=== PATIENT | male | born 1960 | race Caucasian/White ===

== ENCOUNTER 2024-04-05 15:24 | Emergency (ER) | payer BC ==
[2024-04-05 17:18] LABS: #Basophils 0.04 10x3/uL (0.0-0.2); #Eosinphils Less than 0.03 10x3/uL (0.0-0.7); %Basophils 0.2 % (0.0-1.0); %Lymphocytes 10.2 % (21.0-51.0); %Monocytes 11.2 % (0.0-10.0); %Neutrophils 77.8 % (42.0-75.0); Hematocrit 51.6 % (42.0-52.0); Hemoglobin 17.5 g/dL (14.0-18.0); Mean Corpuscular HGB CONC 33.9 g/dL (32.0-36.0); Mean Corpuscular Hemoglobin 31.7 pg (27.0-31.0); Mean Corpuscular Volume 93.5 fL (78.0-98.0); Mean Platelet Volume 9.7 fL (7.4-10.4); Platelet Count 296 10x3/uL (130-400); RBC Distribution Width 13.8 % (11.5-14.5); Red Blood Cell (RBC) Count 5.52 mill/uL (4.70-6.10)
[2024-04-05 17:31] LABS: ALT (SGPT) 55 U/L (8-55); AST (SGOT) 35 U/L (5-34); Albumin 4.4 g/dL (3.4-4.8); Alkaline Phosphatase 50 U/L (40-110); Anion Gap 14 mmol/L (10-20); BUN (Urea Nitrogen) 17 mg/dL (8.4-25.7); Bilirubin, Total 0.6 mg/dL (0.2-1.2); Calc. Creatinine Clearance 0 mL/min (70-130); Calcium 10.4 mg/dL (7.8-10.44); Carbon Dioxide 24 mmol/L (23-31); Chloride 107 mmol/L (98-107); Estimated GFR 51; Globulin 3.4 g/dL (2.4-3.5); Glucose 110 mg/dL (80-115); Lipase 42 U/L (8-78); Potassium 4.4 mmol/L (3.5-5.1); Protein, Total 7.8 g/dL (5.8-8.1); Sodium 141 mmol/L (136-145)
[2024-04-05] MEDS ORDERED: Ondansetron PF 4 MG/2 ML Vial ONE (17:45)
[2024-04-05] MEDS ORDERED: Morphine 4 MG/ML VIAL ONE (17:45)
[2024-04-05 18:41] LABS: Troponin I 0.026 ng/mL (< 0.028)
[2024-04-05] MEDS ORDERED: fentaNYL 50 mcg/mL 1 mL Vial ONE (18:59)
[2024-04-05] MEDS ORDERED: Ketorolac Tromethamine 30 MG (1 mL) VIAL ONE (19:22)
[2024-04-05] MEDS ORDERED: cefTRIAXone (ROCEPHIN) 2 GM VIAL ONE (19:24)
[2024-04-05] MEDS ORDERED: Sodium Chloride 0.9% 100 ML ONE (19:25)
[2024-04-05 19:29] LABS: Bacteria/HPF None Seen HPF (None Seen); Bilirubin Negative (Negative); Blood, Urine 3+ (Negative); CAUTI Indications for Culture Pelvic or flank pain; Clarity Clear (Clear); Glucose, Urine (Dipstick) Normal (Negative); Ketone, Urine Negative (Negative); Leukocyte Negative Leu/uL (Negative); Nitrite Negative (Negative); Protein, Urine (Dipstick) Negative (Neg-Trace); RBC/HPF Greater than 50 HPF (0-3); Specific Gravity, Urine 1.029 (1.002-1.036); Squamous Epithelial 0-3 HPF (0-3); Urobilinogen Normal mg/dL (Less than 2); WBC/HPF 0-3 HPF (0-3); pH, Urine 5.5 (5.0-9.0)
[2024-04-05 19:33] LABS: Urine Culture Reflex No No
[2024-04-05 21:03] LABS: Lactic Acid 1.9 mmol/L (0.5-2.2)
== END 2024-04-05 20:45 | disposition home or self-care (01) ==
LOC: ERS 15:24
DX: N13.2 Hydronephrosis with renal and ureteral calculous obstruction (principal); I10 Essential (primary) hypertension; F17.220 Nicotine dependence, chewing tobacco, uncomplicated; Z79.899 Other long term (current) drug therapy; Z79.82 Long term (current) use of aspirin
CPT/HCPCS: 36415; 36416; 74177; 80053; 81001; 83605; 83690; 84484; 85025; 87040; 93005; J0696; J1885; J2270; J2405; J3010; J3490